=== PATIENT | female | born 1990 | race Hispanic/Latino ===

== ENCOUNTER 2017-12-07 19:20 | Emergency (ER) | payer SELFPAY ==
[2017-12-07 20:15] LABS: Urine Blood NEGATIVE (NEG); Urine Glucose NEGATIVE (NEG); Urine Protein NEGATIVE (NEG); Urine Specific Gravity 1.025 (1.005-1.030); Urine pH 6.5 (5.0-7.0)
[2017-12-07 20:15] LABS: Urine Specific Gravity 1.025 (1.005-1.030)
[2017-12-07] MEDS ORDERED: MEPERIDINE HCL 25 MG/0.5 ML ONE (20:20)
[2017-12-07] MEDS ORDERED: PROMETHAZINE 25 MG/ML VIAL ONE (20:20)
[2017-12-07] MEDS ORDERED: NA CHLORIDE 0.9% 1,000 ML ONE (20:23)
[2017-12-07 20:24] LABS: Absolute Lymphocytes (CBC) 2.5 K/uL (0.7-4.9); Absolute Monocytes 0.7 K/uL (0.1-1.3); Absolute Neutrophil 6.1 K/uL (1.8-8.0); Basophils % 0.4 % (0-1.3); Eosinophils % 0.8 % (0-4.4); Hematocrit 39.5 % (36.0-45.0); Lymphocytes % 26.6 % (15.3-44.8); MCH 27.8 pg (27.0-35.0); MCV 83.3 fL (80-100); MPV 8.6 fL (7.6-11.3); Monocytes % 7.6 % (3.3-12.3); RBC Red Blood Cell Count 4.74 M/uL (3.86-4.86)
[2017-12-07 20:40] LABS: Bicarbonate 24 mEq/L (21-31); Glucose Level 123 mg/dL (65-120); Lipase 22 U/L (22-51); Potassium 3.4 mEq/L (3.6-5.0); Sodium Level 136 mEq/L (135-145)
[2017-12-07 20:46] LABS: ALT/SGPT 17 IU/L (10-60); AST/SGOT 18 IU/L (10-42); Albumin 4.3 g/dL (3.2-5.5); Alkaline Phosphatase 60 IU/L (42-121); Amylase Level 70 U/L (28-100); BUN Blood Urea Nitrogen 23 mg/dL (6-20); Bilirubin Direct 0.1 mg/dL (0-0.2); Bilirubin Total 0.7 mg/dL (0.3-1.2); Protein, Total 7.2 g/dL (6.0-8.3)
[2017-12-07] MEDS ORDERED: KETOROLAC 30 MG/ML INJ ONE (20:54)
[2017-12-07 20:56] LABS: Urine Bacteria <20 /HPF (<20); Urine Culture Reflex Order NOT NEEDED; Urine Mucus 1+ /HPF (NONE SEEN); Urine RBC <5 /HPF (NONE SEEN)
--- NOTE | 2017-12-07 21:02 | RAD REPORT ---
EXAM DESCRIPTION: CT - Stone Protocol - 12/07/2017 8:41 pm CLINICAL HISTORY: Abdominal pain. Right flank pain COMPARISON: None. TECHNIQUE: Computed axial tomography of the abdomen pelvis was obtained without oral or IV contrast. Lack of IV and oral contrast limits evaluation of solid organs, bowel, and vessels. Coronal reformat gayle images were obtained and reviewed. All CT scans are performed using dose optimization technique as appropriate and may include automated exposure control or mA/KV adjustment according to patient size. FINDINGS: A renal calculus is not seen. Mild to moderate right hydronephrosis is present. The right ureter is dilated. A 1 millimeter calculus is present at the right ureteral vesicle junction. The liver, spleen, pancreas and adrenals appear grossly normal There is no evidence of diverticulitis. The appendix appears normal. A 2.7 centimeter right ovarian cyst is present without significant free-fluid An intrauterine device is in place. IMPRESSION: 1 millimeter calculus at the right ureterovesical junction resulting in mild to moderate right hydronephrosis 2.7 centimeter right ovarian cyst without significant free fluid
--- NOTE | 2017-12-07 21:42 | ER ---
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 aj Transition of care: patient was not received from another setting of care. Onset of symptoms was December 07, 2017. Initial Sepsis Screen: Does the patient meet any 2 criteria? No. Patient's initial sepsis screen is negative. Does the patient have a suspected source of infection? No. Patient's initial sepsis screen is negative. Care prior to arrival: None. 19:38 Method Of Arrival: Ambulatory aj 19:38 Acuity: SERA 3 aj Triage Assessment: 19:39 General: Appears uncomfortable, Behavior is calm, cooperative. Pain: Complains of pain aj in posterior aspect of right lateral abdomen and anterior aspect of right lateral abdomen Pain currently is 10 out of 10 on a pain scale. Neuro: Level of Consciousness is awake, alert, obeys commands, Oriented to person, place, time, situation. Respiratory: Airway is patent Respiratory effort is even, unlabored, Respiratory pattern is regular, symmetrical. : Reports pain in right flank(s). Derm: Skin is intact, is healthy with good turgor, Skin is pink, warm \T\ dry. normal. Musculoskeletal: Circulation, motion, and sensation intact. 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 - Social history:: Smoking status: Patient/guardian denies using tobacco. Screenin:45 Abuse screen: Denies threats or abuse. Denies injuries from another. Nutritional bp screening: No deficits noted. Tuberculosis screening: No symptoms or risk factors identified. Fall Risk None identified. Assessment: 19:45 General: Appears distressed, uncomfortable, obese, Behavior is cooperative, appropriate bp for age, anxious. Pain: Complains of pain in posterior aspect of right lateral abdomen and right upper quadrant. Neuro: Level of Consciousness is awake, alert, obeys commands, Oriented to person, place, time, situation, Appropriate for age. Cardiovascular: No deficits noted. Respiratory: Airway is patent Respiratory effort is even, unlabored, Respiratory pattern is regular, symmetrical. GI: Reports upper abdominal pain, nausea. : No signs and/or symptoms were reported regarding the genitourinary system. EENT: No deficits noted. Derm: No deficits noted. Musculoskeletal: Circulation, motion, and sensation intact. Range of motion: intact in all extremities. 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 bp 21:12 Reassessment: PER MD, PT HAS 1MM STONE. DISPO ON HOLD FOR IVF HYDRATION. bp 22:10 Reassessment: IVF COMPLETED, PT D/C HOME AMBULATORY, DX WITH HYDRONEPHROSIS AND bp URETERAL CALCULOUS OBSTRUCTION. Vital Signs: 19:39 BP 113 / 78; Pulse 67; Resp 19; Temp 98.6; Pulse Ox 99% on R/A; Weight 83.91 kg; Height aj 5 ft. 3 in. (160.02 cm); Pain 10/10; 20:24 BP 104 / 91; Pulse 75; Resp 18; Pulse Ox 99% on R/A; mt 21:30 BP 123 / 79; Pulse 74; Resp 16; Pulse Ox 99% on R/A; mt 19:39 Body Mass Index 32.77 (83.91 kg, 160.02 cm) ED Course: 19:29 Patient arrived in ED. es 19:30 None, None is Private Physician. es 19:38 Triage completed. aj 19:39 Arm band placed on left wrist. Patient placed in an exam room. aj 19:44 Farhat Laurent PA is PHCP. jr8 19:44 Jd Mccord MD is Attending Physician. jr8 19:45 Patient has correct armband on for positive identification. Placed in gown. Bed in low bp position. Call light in reach. Side rails up X2. 19:45 No provider procedures requiring assistance completed. bp 19:49 Jose G Marcelino, RN is Primary Nurse. bp 20:00 Inserted saline lock: 20 gauge in right antecubital area, using aseptic technique. bp Blood collected. 20:[address] via stretcher. nj 20:40 CT completed. Patient tolerated procedure well. Patient moved back from CT. nj 20:41 CT Stone Protocol In Process Unspecified. EDMS 21:42 Tamera Guadalupe MD is Referral Physician. jr8 22:09 IV discontinued, intact, bleeding controlled, No redness/swelling at site. Pressure bp dressing applied. Administered Medications: 20:20 Drug: Demerol 25 mg Route: IVP; Site: right antecubital; bp 20:57 Follow up: Response: No adverse reaction bp 20:20 Drug: Phenergan 12.5 mg Route: IVP; Site: right antecubital; bp 20:57 Follow up: Response: No adverse reaction bp 20:58 Drug: Ketorolac 30 mg Route: IVP; Site: right antecubital; bp 21:12 Follow up: Response: Pain is decreased bp 22:08 Drug: [place] (7.5 mg-325 mg) 1 tabs Route: PO; bp 22:08 Follow up: Response: Medication administered at discharge. bp Outcome: 21:42 Discharge ordered by . jr8 22:10 Discharged to home ambulatory. bp 22:10 Condition: stable 22:10 Discharge instructions given to patient, Instructed on discharge instructions, follow up and referral plans. medication usage, Demonstrated understanding of instructions, follow-up care, medications, Prescriptions given X 3. 22:11 Patient left the ED. bp Signatures: Dispatcher [employer] EDDesiree Avina, Jazlyn Mccoy RN, Josh, PA PA jrAddison Childress Moriah mt Pelt[place], Brian RN RN bp
--- NOTE | 2017-12-07 21:42 | EDPHYS ---
Physician Documentation [facility] Name: Lily Swann Age: 27 yrs Sex: Female : 1990 Arrival Date: 12/07/2017 Time: 19:29 Bed 19 Private MD: None, None ED Physician Jd Mccord HPI: 12/07 20:14 This 27 yrs old Female presents to ER via Ambulatory with complaints of jr8 abdominal/flank pain. 20:14 The patient presents with abdominal pain in the right upper quadrant. Onset: The jr8 symptoms/episode began/occurred acutely, today. The symptoms radiate to right back, the right flank. Associated signs and symptoms: Pertinent positives: nausea. The symptoms are described as stabbing. Modifying factors: The symptoms are alleviated by nothing, the symptoms are aggravated by nothing. Severity of pain: At its worst the pain was moderate in the emergency department the pain is unchanged. The patient has not experienced similar symptoms in the past. The patient has not recently seen a physician. 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 - Social history:: Smoking status: Patient/guardian denies using tobacco. ROS: 20:14 Eyes: Negative for injury, pain, redness, and discharge, ENT: Negative for injury, jr8 pain, and discharge, Neck: Negative for injury, pain, and swelling, Cardiovascular: Negative for chest pain, palpitations, and edema, Respiratory: Negative for shortness of breath, cough, wheezing, and pleuritic chest pain, Back: Positive for right sided flank pain MS/Extremity: Negative for injury and deformity, Skin: Negative for injury, rash, and discoloration, Neuro: Negative for headache, weakness, numbness, tingling, and seizure. 20:14 Abdomen/GI: Positive for abdominal pain, nausea, Negative for vomiting, diarrhea, abdominal distension, anorexia, dysphagia, hematemesis, black/tarry stool, rectal pain, rectal bleeding, bowel incontinence, flatulence. Exam: 20:14 Eyes: Pupils equal round and reactive to light, extra-ocular motions intact. Lids and jr8 lashes normal. Conjunctiva and sclera are non-icteric and not injected. Cornea within normal limits. Periorbital areas with no swelling, redness, or edema. ENT: Nares patent. No nasal discharge, no septal abnormalities noted. Tympanic membranes are normal and external auditory canals are clear. Oropharynx with no redness, swelling, or masses, exudates, or evidence of obstruction, uvula midline. Mucous membranes moist. Neck: Trachea midline, no thyromegaly or masses palpated, and no cervical lymphadenopathy. Supple, full range of motion without nuchal rigidity, or vertebral point tenderness. No Meningismus. Cardiovascular: Regular rate and rhythm with a normal S1 and S2. No gallops, murmurs, or rubs. Normal PMI, no JVD. No pulse deficits. Respiratory: Lungs have equal breath sounds bilaterally, clear to auscultation and percussion. No rales, rhonchi or wheezes noted. No increased work of breathing, no retractions or nasal flaring. Skin: Warm, dry with normal turgor. Normal color with no rashes, no lesions, and no evidence of cellulitis. MS/ Extremity: Pulses equal, no cyanosis. Neurovascular intact. Full, normal range of motion. Neuro: Awake and alert, GCS 15, oriented to person, place, time, and situation. Cranial nerves II-XII grossly intact. Motor strength 5/5 in all extremities. Sensory grossly intact. Cerebellar exam normal. Normal gait. 20:14 Abdomen/GI: Inspection: obese Bowel sounds: active, all quadrants, Palpation: soft, in all quadrants, mild abdominal tenderness, in the anterior aspect of right lateral abdomen and right upper quadrant, mass, is not appreciated, rebound tenderness, is not appreciated, voluntary guarding, is not appreciated, involuntary guarding, is not appreciated, no appreciated organomegaly, Indicators: McBurney's point is not tender, Bowman's sign is negative, Rovsing's sign is negative, Liver: no appreciated palpable abnormalities, tenderness, is not appreciated. 20:14 Back: pain, that is moderate, of the right flank, ROM is normal, normal spinal alignment noted, CVA tenderness, that is mild, is noted on the right, muscle spasm, is not present. Vital Signs: 19:39 BP 113 / 78; Pulse 67; Resp 19; Temp 98.6; Pulse Ox 99% on R/A; Weight 83.91 kg; Height aj 5 ft. 3 in. (160.02 cm); Pain 10/10; 20:24 BP 104 / 91; Pulse 75; Resp 18; Pulse Ox 99% on R/A; mt 21:30 BP 123 / 79; Pulse 74; Resp 16; Pulse Ox 99% on R/A; mt 19:39 Body Mass Index 32.77 (83.91 kg, 160.02 cm) aj MDM: 19:44 Patient medically screened. jr8 21:41 Data reviewed: vital signs, nurses notes, lab test result(s), radiologic studies, CT jr8 scan, and as a result, I will discharge patient. Data interpreted: Pulse oximetry: on room air is 99 %. Interpretation: normal. Counseling: I had a detailed discussion with the patient and/or guardian regarding: the historical points, exam findings, and any diagnostic results supporting the discharge/admit diagnosis, lab results, radiology results, the need for outpatient follow up, a urologist, to return to the emergency department if symptoms worsen or persist or if there are any questions or concerns that arise at home. Response to treatment: the patient's symptoms have markedly improved after treatment. 12/07 19:52 Order name: Amylase, Serum; Complete Time: 20:47 bp 12/07 19:52 Order name: Basic Metabolic Panel; Complete Time: 20:47 bp 12/07 19:52 Order name: CBC with Diff; Complete Time: 20:28 bp 12/07 19:52 Order name: Creatinine for Radiology; Complete Time: 20:43 bp 12/07 19:52 Order name: Hepatic Function; Complete Time: 20:47 bp 12/07 19:52 Order name: Lipase; Complete Time: 20:47 bp 12/07 19:52 Order name: Urine Microscopic Only; Complete Time: 21:02 bp 12/07 19:52 Order name: CT Stone Protocol; Complete Time: 21:05 bp 12/07 19:54 Order name: Urine Dipstick--Ancillary (enter results); Complete Time: 20:18 em1 12/07 19:55 Order name: Urine --Ancillary (enter results); Complete Time: 20:18 em1 12/07 19:44 Order name: Urine Test (obtain specimen); Complete Time: 19:49 [facility] 12/07 19:44 Order name: Urine Dipstick-Ancillary (obtain specimen); Complete Time: 19:49 [facility] 12/07 19:52 Order name: IV Saline Lock; Complete Time: 20:02 bp 12/07 19:52 Order name: Labs collected and sent; Complete Time: 20:02 bp Administered Medications: 20:20 Drug: Demerol 25 mg Route: IVP; Site: right antecubital; bp 20:57 Follow up: Response: No adverse reaction bp 20:20 Drug: Phenergan 12.5 mg Route: IVP; Site: right antecubital; bp 20:57 Follow up: Response: No adverse reaction bp 20:58 Drug: Ketorolac 30 mg Route: IVP; Site: right antecubital; bp 21:12 Follow up: Response: Pain is decreased bp 22:08 Drug: [place] (7.5 mg-325 mg) 1 tabs Route: PO; bp 22:08 Follow up: Response: Medication administered at discharge. bp Disposition: 12/08 07:57 Co-signature as Attending Physician, Jd Mccord MD I agree with the assessment and kaylen plan of care. Disposition: 12/07/17 21:42 Discharged to Home. Impression: Hydronephrosis with renal and ureteral calculous obstruction. - Condition is Stable. - Discharge Instructions: Kidney Stones, Hydronephrosis. - Prescriptions for Tylenol- Codeine #3 300-30 mg Oral Tablet - take 2 tablet by ORAL route every 6 hours As needed; 30 tablet. Zofran 4 mg Oral Tablet - take 1 tablet by ORAL route every 12 hours As needed; 20 tablet. Flomax 0.4 mg Oral Capsule, Sust. Release 24 hr - take 1 capsule by ORAL route once daily 1/2 hour following the same meal each day; 30 capsule. - Medication Reconciliation Form, Thank You Letter, Antibiotic Education, Prescription Opioid Use form. - Follow up: Tamera Guadalupe MD; When: 2 - 3 days; Reason: Recheck today's complaints, Continuance of care, Re-evaluation by your physician. - Problem is new. - Symptoms have improved. Signatures: Dispatcher [employer] EDDesiree Avina RN RN aj Anderson, Corey, MD MD cha Roszak, Josh, PA PA jr8 Jose G Marcelino, RN RN bp Corrections: (The following items were deleted from the chart) 12/07 21:20 20:48 Abdomen Limited+[id number] ordered. EDMS EDMS
[2017-12-07] MEDS ORDERED: HYDROCODONE/APAP 7.5/325 MG TAB ONE (21:59)
== END 2017-12-07 22:11 | disposition home or self-care (01) ==
LOC: ER 19:20
DX: N13.2 Hydronephrosis with renal and ureteral calculous obstruction (principal)
CPT/HCPCS: 36415; 74176; 76377; 80048; 80076; 81003; 81015; 81025; 82150; 83690; 85025; 96374; 96375; 99284; J2175; J2550; J7030

== ENCOUNTER 2018-06-08 16:37 | Emergency (ER) | payer OTHER, SELFPAY ==
[2018-06-08 18:10] LABS: Absolute Lymphocytes (CBC) 1.9 K/uL (0.7-4.9); Absolute Monocytes 0.5 K/uL (0.1-1.3); Absolute Neutrophil 7.4 K/uL (1.8-8.0); Basophils % 0.4 % (0-1.3); Eosinophils % 0.6 % (0-4.4); Hematocrit 39.3 % (36.0-45.0); Lymphocytes % 19.1 % (15.3-44.8); MCH 29.2 pg (27.0-35.0); MCV 85.9 fL (80-100); MPV 8.7 fL (7.6-11.3); Monocytes % 5.4 % (3.3-12.3); RBC Red Blood Cell Count 4.57 M/uL (3.86-4.86)
[2018-06-08 18:12] LABS: Protime INR 1.04
[2018-06-08 18:44] LABS: ALT/SGPT 23 U/L (12-78); AST/SGOT 16 U/L (15-37); Albumin 3.3 g/dL (3.4-5.0); Alkaline Phosphatase 67 U/L (45-117); BUN Blood Urea Nitrogen 8 mg/dL (7-18); Bicarbonate 21 mmol/L (21-32); Bilirubin Direct 0.1 mg/dL (0-0.2); Bilirubin Total 0.7 mg/dL (0.2-1.0); Glucose Level 82 mg/dL (74-106); NT PRO-BNP 24 pg/mL (<125); Potassium 3.7 mmol/L (3.5-5.1); Protein, Total 7.4 g/dL (6.4-8.2); Sodium Level 139 mmol/L (136-145); Troponin (Emerg Dept Use Only) < 0.02 ng/mL (0.0-0.045)
--- NOTE | 2018-06-08 19:03 | ER ---
Nurse's Notes [facility] Name: Lily Swann Age: 27 yrs Sex: Female : 1990 Arrival Date: 06/08/2018 Time: 16:39 Bed 13 Private MD: Diagnosis: Chest pain, unspecified Presentation: 06/08 17:00 Presenting complaint: Patient states: Left sided chest pain that radiates down her left aj1 arm since 0700. States that she has been having pain like this that is on and off for the past month and a half, but she has not been evaluated for this pain before now. Patient reports that she is 12 weeks . Reports SOB, palpitations, nausea. Transition of care: patient was not received from another setting of care. Onset of symptoms was June 08, 2018 at 07:00. Risk Assessment: Do you want to hurt yourself or someone else? Patient reports no desire to harm self or others. Initial Sepsis Screen: Does the patient meet any 2 criteria? HR > 90 bpm. No. Patient's initial sepsis screen is negative. Does the patient have a suspected source of infection? No. Patient's initial sepsis screen is negative. Care prior to arrival: None. 17:00 Method Of Arrival: Ambulatory aj1 17:00 Acuity: SERA 3 aj1 Triage Assessment: 17:04 General: Appears in no apparent distress. comfortable, Behavior is calm, cooperative, aj1 appropriate for age. Pain: Complains of pain in anterior aspect of left upper chest Pain radiates to left arm Pain currently is 7 out of 10 on a pain scale. Neuro: Level of Consciousness is awake, alert, obeys commands. Cardiovascular: Patient's skin is warm and dry. Cardiovascular: Reports chest pain, palpitations, shortness of breath. Respiratory: Airway is patent Respiratory effort is even, unlabored, Respiratory pattern is regular, symmetrical. 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 - Social history:: Smoking status: Patient/guardian denies using tobacco. - Ebola Screening: : Patient denies travel to an Ebola-affected area in the 21 days before illness onset. Screenin:03 Abuse screen: Denies threats or abuse. Denies injuries from another. Nutritional ph screening: No deficits noted. Tuberculosis screening: No symptoms or risk factors identified. Fall Risk None identified. Assessment: 17:30 General: Appears in no apparent distress. comfortable, obese, well groomed, Behavior is ph calm, cooperative, appropriate for age, Denies fever, feeling ill. Pain: Complains of pain in anterior aspect of left upper chest Pain radiates to left arm Pain began approx 6 weeks ago. Neuro: Level of Consciousness is awake, alert, obeys commands, Oriented to person, place, time, situation. Cardiovascular: Reports chest pain, palpitations, shortness of breath, Denies nausea, vomiting, Capillary refill < 3 seconds Patient's skin is warm and dry. Respiratory: Reports shortness of breath Airway is patent Respiratory effort is even, unlabored, Respiratory pattern is regular, symmetrical, Breath sounds are clear bilaterally. Derm: Skin is intact, is healthy with good turgor, Skin is pink, warm \T\ dry. Musculoskeletal: Circulation, motion, and sensation intact. Range of motion: intact in all extremities. 18:30 Reassessment: Patient appears in no apparent distress at this time. Patient and/or ph family updated on plan of care and expected duration. Pain level reassessed. Patient is alert, oriented x 3, equal unlabored respirations, skin warm/dry/pink. Pt resting quietly, awaiting lab and radiology results. Vital Signs: 17:04 BP 112 / 83; Pulse 95; Resp 20; Temp 97.5; Pulse Ox 100% on R/A; Weight 86.64 kg (R); aj1 Height 5 ft. 3 in. (160.02 cm) (R); Pain 7/10; 19:05 BP 104 / 79; Pulse 79; Resp 16; Pulse Ox 98% on R/A; jb4 17:04 Body Mass Index 33.83 (86.64 kg, 160.02 cm) aj1 ED Course: 16:39 Patient arrived in ED. as 17:01 Jinny Henry, XIAO is Primary Nurse. ph 17:02 Farhat Laurent PA is PHCP. jr8 17:02 Aureliano Wolfe MD is Attending Physician. jr8 17:04 Triage completed. aj1 17:04 Arm band placed on Patient placed in an exam room. aj1 17:13 EKG done, by technical solutions consultant. reviewed by Farhat JAIME. 3 18:10 Initial lab(s) drawn, by me, sent to lab. Inserted saline lock: 20 gauge in left em1 antecubital area, using aseptic technique. Blood collected. 18:21 XRAY Chest (1 view) In Process Unspecified. EDMS 19:03 Patient has correct armband on for positive identification. Placed in gown. Bed in low ph position. Call light in reach. Side rails up X 1. Pulse ox on. NIBP on. Warm blanket given. 19:03 No provider procedures requiring assistance completed. Patient maintains SpO2 ph saturation greater than 95% on room air. 19:05 IV discontinued, intact, bleeding controlled. jb4 Administered Medications: No medications were administered Outcome: 19:02 Discharge ordered by . bennie 19:05 Discharged to home ambulatory. jb4 19:05 Condition: stable 19:05 Discharge instructions given to patient, Instructed on discharge instructions, follow up and referral plans. Demonstrated understanding of instructions, follow-up care. 19:13 Patient left the ED. jb4 Signatures: Dispatcher [employer] EDMS Marcie Crocker, RN RN aj1 Imelda Haynes Eric [facility] Farhat Laurent PA PA jrJinny Raza, Shadi Bowen RN, ph, RN RN jb4 Maite Ladd 3
--- NOTE | 2018-06-08 19:03 | EDPHYS ---
Physician Documentation [facility] Name: Lily Swann Age: 27 yrs Sex: Female : 1990 Arrival Date: 06/08/2018 Time: 16:39 Bed 13 Private MD: ED Physician Aureliano Wolfe HPI: 06/08 18:07 This 27 yrs old Female presents to ER via Ambulatory with complaints of Chest jr8 Pain. 18:07 The patient or guardian reports chest pain that is located primarily in the anterior jr8 chest wall, left. The pain radiates to the left arm. Associated signs and symptoms: The patient has no apparent associated signs or symptoms. The chest pain is described as sharp. Duration: The patient or guardian reports multiple episodes, that are intermittent, that wax and wane. Modifying factors: The symptoms are alleviated by deep breath. the symptoms are aggravated by nothing. Severity of pain: At its worst the pain was moderate in the emergency department the pain has resolved. The patient has experienced similar episodes in the past, multiple times. The patient has not recently seen a physician. Stated that the pain started over a year ago. Chest pain on/off but started up again this AM. Has been intermittent throughout the day . 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 - Social history:: Smoking status: Patient/guardian denies using tobacco. - Ebola Screening: : Patient denies travel to an Ebola-affected area in the 21 days before illness onset. ROS: 18:07 Eyes: Negative for injury, pain, redness, and discharge, ENT: Negative for injury, jr8 pain, and discharge, Neck: Negative for injury, pain, and swelling, Respiratory: Negative for shortness of breath, cough, wheezing, and pleuritic chest pain, Abdomen/GI: Negative for abdominal pain, nausea, vomiting, diarrhea, and constipation, Back: Negative for injury and pain, MS/Extremity: Negative for injury and deformity, Skin: Negative for injury, rash, and discoloration, Neuro: Negative for headache, weakness, numbness, tingling, and seizure. 18:07 Cardiovascular: Positive for chest pain, Negative for edema, orthopnea, palpitations, paroxysmal nocturnal dyspnea. Exam: 18:07 Eyes: Pupils equal round and reactive to light, extra-ocular motions intact. Lids and jr8 lashes normal. Conjunctiva and sclera are non-icteric and not injected. Cornea within normal limits. Periorbital areas with no swelling, redness, or edema. ENT: Nares patent. No nasal discharge, no septal abnormalities noted. Tympanic membranes are normal and external auditory canals are clear. Oropharynx with no redness, swelling, or masses, exudates, or evidence of obstruction, uvula midline. Mucous membranes moist. Neck: Trachea midline, no thyromegaly or masses palpated, and no cervical lymphadenopathy. Supple, full range of motion without nuchal rigidity, or vertebral point tenderness. No Meningismus. Cardiovascular: Regular rate and rhythm with a normal S1 and S2. No gallops, murmurs, or rubs. Normal PMI, no JVD. No pulse deficits. Respiratory: Lungs have equal breath sounds bilaterally, clear to auscultation and percussion. No rales, rhonchi or wheezes noted. No increased work of breathing, no retractions or nasal flaring. Abdomen/GI: Soft, non-tender, with normal bowel sounds. No distension or tympany. No guarding or rebound. No evidence of tenderness throughout. Back: No spinal tenderness. No costovertebral tenderness. Full range of motion. Skin: Warm, dry with normal turgor. Normal color with no rashes, no lesions, and no evidence of cellulitis. MS/ Extremity: Pulses equal, no cyanosis. Neurovascular intact. Full, normal range of motion. Neuro: Awake and alert, GCS 15, oriented to person, place, time, and situation. Cranial nerves II-XII grossly intact. Motor strength 5/5 in all extremities. Sensory grossly intact. Cerebellar exam normal. Normal gait. 18:07 Chest/axilla: Inspection: normal, Palpation: tenderness, that is mild, that partially reproduces the patient's complaints. Vital Signs: 17:04 BP 112 / 83; Pulse 95; Resp 20; Temp 97.5; Pulse Ox 100% on R/A; Weight 86.64 kg (R); aj1 Height 5 ft. 3 in. (160.02 cm) (R); Pain 7/10; 19:05 BP 104 / 79; Pulse 79; Resp 16; Pulse Ox 98% on R/A; jb4 17:04 Body Mass Index 33.83 (86.64 kg, 160.02 cm) aj1 MDM: 17:04 Patient medically screened. [facility] 19:02 Data reviewed: vital signs, nurses notes, lab test result(s), EKG, radiologic studies, jr plain films, and as a result, I will discharge patient. Data interpreted: Pulse oximetry: on room air is 100 %. Interpretation: normal. Counseling: I had a detailed discussion with the patient and/or guardian regarding: the historical points, exam findings, and any diagnostic results supporting the discharge/admit diagnosis, lab results, radiology results, the need for outpatient follow up, a family practitioner, to return to the emergency department if symptoms worsen or persist or if there are any questions or concerns that arise at home. Response to treatment: the patient's symptoms have resolved after treatment. 06/08 17:44 Order name: Basic Metabolic Panel; Complete Time: 18:48 06/08 17:44 Order name: CBC with Diff; Complete Time: 18:16 [facility] 06/08 17:44 Order name: LFT's; Complete Time: 18:48 06/08 17:44 Order name: Magnesium; Complete Time: 18:48 06/08 17:44 Order name: NT PRO-BNP; Complete Time: 18:48 06/08 17:44 Order name: PT-INR; Complete Time: 18:16 06/08 17:44 Order name: Troponin (emerg Dept Use Only); Complete Time: 18:48 06/08 17:44 Order name: XRAY Chest (1 view) [facility] 06/08 17:44 Order name: EKG; Complete Time: 17:45 [facility] 06/08 17:44 Order name: Cardiac monitoring; Complete Time: 18:56 06/08 17:44 Order name: EKG - Nurse/Tech; Complete Time: 18:56 06/08 17:44 Order name: IV Saline Lock; Complete Time: 18:10 06/08 18:13 Order name: Urine Dipstick--Ancillary (enter results) 06/08 18:13 Order name: Urine --Ancillary (enter results) eb 06/08 17:44 Order name: Labs collected and sent; Complete Time: 18:10 jr8 06/08 17:44 Order name: O2 Per Protocol; Complete Time: 18:56 jr8 06/08 17:44 Order name: O2 Sat Monitoring; Complete Time: 18:56 jr8 Administered Medications: No medications were administered Disposition: 06/09 06:13 Co-signature as Attending Physician, Aureliano Wolfe MD. rn Disposition: 06/08/18 19:02 Discharged to Home. Impression: Chest pain, unspecified. - Condition is Stable. - Discharge Instructions: Nonspecific Chest Pain. - Medication Reconciliation Form, Thank You Letter, Antibiotic Education, Prescription Opioid Use form. - Follow up: Private Physician; When: 2 - 3 days; Reason: Recheck today's complaints, Continuance of care, Re-evaluation by your physician. - Problem is new. - Symptoms have improved. Signatures: Dispatcher [employer] EDMS Marcie Corcker RN RN aj1 Aureliano Wolfe MD MD rn Roszak, Josh, PA PA jr8 Shadi Garcia RN RN jb4 Corrections: (The following items were deleted from the chart) 06/08 19:13 19:02 06/08/2018 19:02 Discharged to Home. Impression: Chest pain, unspecified. jb4 Condition is Stable. Forms are Medication Reconciliation Form, Thank You Letter, Antibiotic Education, Prescription Opioid Use. Follow up: Private Physician; When: 2 - 3 days; Reason: Recheck today's complaints, Continuance of care, Re-evaluation by your physician. Problem is new. Symptoms have improved. jr8
--- NOTE | 2018-06-08 19:19 | RAD REPORT ---
EXAM DESCRIPTION: RAD - Chest Single View - 06/08/2018 6:20 pm CLINICAL HISTORY: Left-sided chest pain COMPARISON: None. TECHNIQUE: AP portable chest image was obtained 1813 hours . FINDINGS: Lungs are clear. Heart and vasculature are normal. No measurable pleural effusion and no p neumothorax. No acute bony abnormality seen. No acute aortic findings suspected. IMPRESSION: No acute cardiopulmonary process.
[2018-06-08 19:26] LABS: Urine Blood NEGATIVE (NEG); Urine Glucose NEGATIVE (NEG); Urine Protein NEGATIVE (NEG); Urine pH 5.5 (5.0-7.0)
--- NOTE | 2018-06-09 07:29 | EKG ---
Test Date: 2018-06-08 Test Time: 17:11:29 Clinical Safety Manager: CARY MEASUREMENT RESULTS: Intervals: Rate: 87 NC: 186 QRSD: 82 QT: 382 QTc: 459 [place]: P: 41 NC: 186 QRS: 0 T: 32 INTERPRETIVE STATEMENTS: Normal sinus rhythm Normal ECG No previous ECG available for comparison Electronically Signed On 06-09-18 07:27:41 CDT by Jesús Jaimes
== END 2018-06-08 19:13 | disposition home or self-care (01) ==
LOC: ER 16:37
DX: R07.9 Chest pain, unspecified (principal); E03.9 Hypothyroidism, unspecified
CPT/HCPCS: 36415; 71045; 80048; 80076; 81003; 81025; 83735; 83880; 84484; 85025; 85610; 93005; 99284

== ENCOUNTER 2018-11-30 21:35 | Emergency (ER) | payer OTHER ==
--- OUTSIDE RECORDS SUMMARY | 2018-11-30 21:37 | XMS REPORT ---
:1990 [facility] Address [address] [place] [address] Dr. Hoang [address] [place] [id number] Care Team Providers Name Role Phone Unavailable Unavailable Unavailable Problems This patient has no known problems. Allergies, Adverse Reactions, Alerts This patient has no known allergies or adverse reactions. Medications This patient has no known medications.
[2018-11-30] MEDS ORDERED: ONDANSETRON 4 MG (ODT) TAB ONE (22:24)
[2018-11-30] MEDS ORDERED: ACETAMINOPHEN 500 MG TAB ONE (22:24)
--- NOTE | 2018-11-30 23:29 | ER ---
Nurse's Notes [facility] Name: Lily Swann Age: 28 yrs Sex: Female : 1990 Arrival Date: 11/30/2018 Time: 21:39 Bed 17 Private MD: Diagnosis: Acute upper respiratory infection, unspecified Presentation: 11/30 21:56 Presenting complaint: Patient states: "I have a sore throat and coughing with chest jd3 pain and nausea with headache for 2 days now.". Transition of care: patient was not received from another setting of care. Onset of symptoms was November 30, 2018. Risk Assessment: Do you want to hurt yourself or someone else? Patient reports no desire to harm self or others. Initial Sepsis Screen: Does the patient meet any 2 criteria? No. Patient's initial sepsis screen is negative. Does the patient have a suspected source of infection? No. Patient's initial sepsis screen is negative. Care prior to arrival: None. 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 - Social history:: Smoking status: Patient/guardian denies using tobacco. - Ebola Screening: : Patient negative for fever greater than or equal to 101.5 degrees Fahrenheit, and additional compatible Ebola Virus Disease symptoms. Screenin:06 Abuse screen: Denies threats or abuse. Nutritional screening: No deficits noted. jd3 Tuberculosis screening: No symptoms or risk factors identified. Fall Risk Ambulatory Aid- None/Bed Rest/Nurse Assist (0 pts). Gait- Normal/Bed Rest/Wheelchair (0 pts) Mental Status- Oriented to own ability (0 pts). Total Lopez Fall Scale indicates No Risk (0-24 pts). Assessment: 22:02 General: Appears in no apparent distress. uncomfortable, Behavior is calm, cooperative, jd3 appropriate for age. Pain: Complains of pain in chest Pain does not radiate. Quality of pain is described as aching, Pain began 2-3 days ago. Neuro: Level of Consciousness is awake, alert, obeys commands, Oriented to person, place, time, situation, Appropriate for age. Cardiovascular: Heart tones present Capillary refill < 3 seconds Patient's skin is warm and dry. Respiratory: Reports cough that is productive, Airway is patent Respiratory effort is even, unlabored, Respiratory pattern is regular, symmetrical, Breath sounds are clear bilaterally. GI: Abdomen is round Reports nausea, vomiting. : No signs and/or symptoms were reported regarding the genitourinary system. EENT: No signs and/or symptoms were reported regarding the EENT system. Nares with drainage noted. Derm: Skin is intact, Skin is dry, Skin is normal, Skin temperature is warm. Musculoskeletal: Circulation, motion, and sensation intact. Range of motion: intact in all extremities. 22:46 Reassessment: Patient appears in no apparent distress at this time. Patient and/or jd3 family updated on plan of care and expected duration. Pain level reassessed. Patient is alert, oriented x 3, equal unlabored respirations, skin warm/dry/pink. Patient states feeling better. 23:40 Reassessment: Patient appears in no apparent distress at this time. Patient and/or jd3 family updated on plan of care and expected duration. Pain level reassessed. Patient is alert, oriented x 3, equal unlabored respirations, skin warm/dry/pink. reported understanding of discharge instructions. Patient states feeling better. Vital Signs: 21:59 BP 108 / 81; Pulse 128; Resp 20 S; Temp 98.9(O); Pulse Ox 99% on R/A; Weight 86.18 kg jd3 (R); Height 5 ft. 3 in. (160.02 cm) (R); Pain 10/10; 22:45 BP 114 / 71; Pulse 117; Resp 18 S; Pulse Ox 100% on R/A; jd3 21:59 Body Mass Index 33.66 (86.18 kg, 160.02 cm) j Vitals: 22:19 Heart Tones 152. [facility] ED Course: 21:39 Patient arrived in ED. am2 21:55 Radu Ferraro RN is Primary Nurse. jd3 21:55 Jd Villafuerte PA is PHCP. cp 21:56 Braydon Stafford MD is Attending Physician. cp 21:58 Triage completed. jd3 22:02 Arm band placed on. jd3 22:06 Patient has correct armband on for positive identification. Bed in low position. Call jd3 light in reach. Side rails up X 1. equipment monitor phototypesetting on. Pulse ox on. 22:06 Patient maintains SpO2 saturation greater than 95% on room air. jd3 23:40 No provider procedures requiring assistance completed. Patient did not have IV access jd3 during this emergency room visit. Administered Medications: 22:19 Drug: Tylenol 1000 mg Route: PO; jd3 23:15 Follow up: Response: No adverse reaction jd3 22:19 Drug: Zofran 4 mg Route: PO; jd3 23:15 Follow up: Response: No adverse reaction jd3 Outcome: 23:28 Discharge ordered by MD. cp 23:40 Discharged to home ambulatory. jd3 23:40 Condition: stable 23:40 Discharge instructions given to patient, Instructed on discharge instructions, follow up and referral plans. Demonstrated understanding of instructions, follow-up care. 23:42 Patient left the ED. jd3 Signatures: Jd Villafuerte PA PA cp Moreno, Amanda am2 Radu Ferraro RN RN jd3
--- NOTE | 2018-11-30 23:29 | EDPHYS ---
Physician Documentation [facility] Name: Lily Swann Age: 28 yrs Sex: Female : 1990 Arrival Date: 11/30/2018 Time: 21:39 Bed 17 Private MD: ED Physician Braydon Stafford HPI: 11/30 22:10 This 28 yrs old Female presents to ER via Ambulatory with complaints of Cough, cp Chest Pain, Headache, Nausea, bodyache. 22:10 The patient or guardian reports cough, that is intermittent, with no sputum. Onset: The cp symptoms/episode began/occurred 2 day(s) ago. Associated signs and symptoms: Pertinent positives: chest pain, with cough, nausea, sore throat, headache, Pertinent negatives: diarrhea, fever, vomiting. 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 - Social history:: Smoking status: Patient/guardian denies using tobacco. - Ebola Screening: : Patient negative for fever greater than or equal to 101.5 degrees Fahrenheit, and additional compatible Ebola Virus Disease symptoms. ROS: 22:20 Constitutional: Negative for body aches, fever, poor PO intake. cp 22:20 Eyes: Negative for injury, pain, redness, and discharge. cp 22:20 ENT: Positive for sinus congestion, sore throat, Negative for drainage from ear(s), ear pain, difficulty swallowing, difficulty handling secretions. 22:20 Cardiovascular: Positive for chest pain, with cough, Negative for edema. 22:20 Respiratory: Positive for cough, with no reported sputum, Negative for shortness of breath, wheezing. 22:20 Abdomen/GI: Positive for nausea, Negative for abdominal pain, vomiting, diarrhea, constipation. 22:20 : Negative for urinary symptoms, vaginal bleeding, leakage of fluids. 22:20 Skin: Negative for rash. 22:20 Neuro: Positive for headache, Negative for altered mental status, weakness. 22:20 All other systems are negative. Exam: 22:25 Constitutional: The patient appears in no acute distress, alert, awake, non-toxic, well cp developed, well nourished. 22:25 Head/Face: Normocephalic, atraumatic. cp 22:25 Eyes: Periorbital structures: appear normal, Conjunctiva: normal, no exudate, no injection, Sclera: no appreciated abnormality, Lids and lashes: appear normal, bilaterally. 22:25 ENT: External ear(s): are unremarkable, Ear canal(s): are normal, clear, TM's: bulging, is not appreciated, bilaterally, dullness, bilaterally, erythema, is not appreciated, bilaterally, Nose: is normal, Mouth: Lips: moist, Oral mucosa: moist, Posterior pharynx: Airway: no evidence of obstruction, patent, Tonsils: with erythema, swelling, is not appreciated, erythema, that is mild, exudate, is not appreciated. 22:25 Neck: ROM/movement: is normal, is supple, no range of motions limitations, no meningismus, no nuchal rigidity, Lymph nodes: no appreciated lymphadenopathy. 22:25 Chest/axilla: Inspection: normal. 22:25 Cardiovascular: Rate: tachycardic, Rhythm: regular. 22:25 Respiratory: the patient does not display signs of respiratory distress, Respirations: normal, no use of accessory muscles, no retractions, no splinting, no tachypnea, labored breathing, is not present, Breath sounds: bronchial sounds, are not appreciated, decreased breath sounds, are not appreciated, + upper airway congestion. wheezing: is not appreciated. 22:25 Abdomen/GI: Inspection: gravid appearance, is noted, Palpation: abdomen is soft and non-tender, in all quadrants. 22:25 Back: pain, is absent, ROM is normal. 22:25 Skin: cellulitis, is not appreciated, no rash present. 22:25 Neuro: Orientation: to person, place \T\ time. Mentation: is normal, Cerebellar function: is grossly normal, Motor: moves all fours, strength is normal, Sensation: no obvious gross deficits. Vital Signs: 21:59 BP 108 / 81; Pulse 128; Resp 20 S; Temp 98.9(O); Pulse Ox 99% on R/A; Weight 86.18 kg jd3 (R); Height 5 ft. 3 in. (160.02 cm) (R); Pain 10/10; 22:45 BP 114 / 71; Pulse 117; Resp 18 S; Pulse Ox 100% on R/A; jd3 21:59 Body Mass Index 33.66 (86.18 kg, 160.02 cm) jd3 MDM: 21:56 Patient medically screened. cp 23:27 Data reviewed: vital signs, nurses notes, lab test result(s), and as a result, I will cp discharge patient. 11/30 22:08 Order name: Influenza Screen (a \T\ B); Complete Time: 22:59 cp 11/30 22:59 Interpretation: Reviewed. 11/30 22:08 Order name: Strep; Complete Time: 22:59 cp 11/30 22:59 Interpretation: Reviewed. 11/30 22:08 Order name: FHT's; Complete Time: 22:19 cp 11/30 22:39 Order name: Throat Culture EDMD 11/30 22:36 Order name: PO challenge; Complete Time: 22:54 cp Administered Medications: 22:19 Drug: Tylenol 1000 mg Route: PO; jd3 23:15 Follow up: Response: No adverse reaction jd3 22:19 Drug: Zofran 4 mg Route: PO; jd3 23:15 Follow up: Response: No adverse reaction jd3 Disposition: 12/01 06:58 Co-signature as Attending Physician, Braydon Stafford MD Available for consultation at ps1 all times. . Disposition: 11/30/18 23:28 Discharged to Home. Impression: Acute upper respiratory infection, unspecified. - Condition is Stable. - Discharge Instructions: Upper Respiratory Infection, Adult, Cool Mist Vaporizer. - Medication Reconciliation Form, Thank You Letter, Antibiotic Education, Prescription Opioid Use form. - Follow up: Private Physician; When: 2 - 3 days; Reason: Recheck today's complaints. - Problem is new. - Symptoms have improved. Signatures: Dispatcher [employer] EDMD Jd Villafuerte PA PA cp Davies, Jonathon, RN RN jd3 Singer, Phillip, MD MD ps1 Corrections: (The following items were deleted from the chart) 11/30 23:42 23:28 11/30/2018 23:28 Discharged to Home. Impression: Acute upper respiratory jd3 infection, unspecified. Condition is Stable. Forms are Medication Reconciliation Form, Thank You Letter, Antibiotic Education, Prescription Opioid Use. Follow up: Private Physician; When: 2 - 3 days; Reason: Recheck today's complaints. Problem is new. Symptoms have improved. cp
== END 2018-11-30 23:42 | disposition home or self-care (01) ==
LOC: ER 21:35
DX: J06.9 Acute upper respiratory infection, unspecified (principal); Z3A.00 Weeks of gestation of pregnancy not specified
CPT/HCPCS: 87070; 87081; 87804; 99284

== ENCOUNTER 2018-12-20 14:52 | Inpatient (IN) | payer OTHER ==
[2018-12-20] MEDS ORDERED: Ringers Lactate 1,000 ML IV PRN (14:54)
[2018-12-20] MEDS ORDERED: METHYLERGONOVINE 0.2MG/ML AMP IM PRN ×2 (14:54→23:06)
--- OUTSIDE RECORDS SUMMARY | 2018-12-20 14:55 | XMS REPORT ---
:1990 [facility] Address [address] [place] [address] Dr. Hoang [address] [place] [address] Care Team Providers Name Role Phone Unavailable Unavailable Unavailable Problems This patient has no known problems. Allergies, Adverse Reactions, Alerts This patient has no known allergies or adverse reactions. Medications This patient has no known medications.
[2018-12-20] MEDS ORDERED: Ringers Lactate 1,000 ML IV SCH (15:00)
[2018-12-20] MEDS ORDERED: LIDOCAINE 1% MPF 30 ML VIAL SQ ONE (15:32)
[2018-12-20] MEDS ORDERED: BUTORPHANOL 1 MG/ML INJ IV ONE ×2 (15:43→16:00)
[2018-12-20 15:44] LABS: Absolute Lymphocytes (CBC) 2.5 K/uL (0.7-4.9); Absolute Neutrophil 8.1 K/uL (1.8-8.0); Basophils % 0.2 % (0-1.3); Eosinophils % 0.7 % (0-4.4); Hematocrit 35.2 % (36.0-45.0); Lymphocytes % 21.7 % (15.3-44.8); MPV 8.7 fL (7.6-11.3); Monocytes % 8.6 % (3.3-12.3); RBC Red Blood Cell Count 4.52 M/uL (3.86-4.86)
[2018-12-20] MEDS ORDERED: PROMETHAZINE 25 MG/ML VIAL IV ONE (15:44)
[2018-12-20] MEDS ORDERED: BUTORPHANOL 1 MG/ML INJ ONE (15:59)
[2018-12-20] MEDS ORDERED: PROMETHAZINE 25 MG/ML VIAL ONE (15:59)
[2018-12-20] MEDS ORDERED: OXYTOCIN/LR 20 UNIT/1,000 ML BAG IV SCH ×2 (16:00→23:45)
[2018-12-20 16:02] VITALS: BMI 33.6
[2018-12-20] MEDS ORDERED: CARBOPROST TROME 250 MCG/ML IM ONE (16:09)
[2018-12-20] MEDS ORDERED: ROPIVACAINE HCL 2 MG/ML 100ML IV ONE (18:00)
[2018-12-20] MEDS ORDERED: ROPIVACAINE HCL 100 ML IV ONE (18:00)
[2018-12-20] MEDS ORDERED: FENTANYL CITR 100 MCG/2 ML IV ONE (18:00)
[2018-12-20] MEDS ORDERED: ROPIVACAINE HCL 20 ML ONE (18:22)
[2018-12-20] MEDS ORDERED: NA CIT/CITRIC AC 30 ML ORAL UDC PO ONE (21:23)
--- NOTE | 2018-12-20 21:27 | P.PN ---
Date of Service: 12/20/18 CX 7+ cm, edematious, I believe obstructed labor is present with only change from 5+ cm over 6 hour period of time and actual decrease from 8+ earlier, with no descent from minus 1-minus2 station. Will proceed with , I feel continued observation may injure or rupture uterus. Explained to patient and family
[2018-12-20] MEDS ORDERED: FAMOTIDINE 20 MG/2 ML VIAL IV ONE (21:39)
[2018-12-20] MEDS ORDERED: NA CIT/CITRIC AC 30 ML ORAL UDC ONE (21:39)
[2018-12-20] MEDS ORDERED: METOCLOPRAMIDE 10 MG/2mL INJ ONE (21:39)
[2018-12-20] MEDS ORDERED: CEFAZOLIN/SWI 2gm 2 GM/20 ML SYR ONE (21:40)
--- NOTE | 2018-12-20 21:49 | PREOPHP ---
Date of Admission: 12/20/2018 History Of Present Illness: Ms. James is a 28-year-old female, who refuses to answer any q uestions and refuses to cooperate with this examination. She is a 3, para 2-0-0-2, apparentl y being followed through [facility], was seen today, said to be 2 cm, contractions started about 4 t o 5 hours ago. She had rupture of membranes by her 's history, and presents to Labor and [facility] where she is noted to be 5 cm dilated. She is admitted for delivery. Past Medical History: Includes 2 prior vaginal deliveries without complications in 2011 and 2016. S he has a prior appendectomy. She has no other hospitalizations, accidents, illnesses, or injuries. Medications: She is on no medications other than vitamins. Allergies: SHE HAS NO KNOWN ALLERGIES. Social History: She does not smoke. Family History: Noncontributory. Review of Systems: and mother report because again the patient refuses to respond and just hyperventilates with her contractions. They report no recent cough, cold, fever, or chills. No recent nausea or vomiting . She denies any breast lumps or breast knots. They deny any bladder symptoms or other complaints. Physical Examination: General: Reveals a female, who refuses to comply with request on examination. Neck: Supple without obvious adenopathy or thyromegaly. Lungs: Clear. Breasts: Not examined. Abdomen: Estimated weight, 6+ pounds. Cervix noted to be 7 cm. Vertex presentation. Extremities: No cyanosis, clubbing, or edema. Impression: A 39+ week by history, labor. Plan: We will continue to request copies of records, which we have not been able to obtain as yet de spite trying for the last 2 hours. We have been able to ascertain she is beta strep negative. We wi ll plan on vaginal delivery. She has been medicated with 1 mg of Stadol, 12.5 mg IV of Phenergan x1. ALPHONSEG/ALYSHAL Voice ID: [id number]
[2018-12-20] MEDS ORDERED: ONDANSETRON 4 MG/2 ML VIAL ONE (21:52)
[2018-12-20] MEDS ORDERED: Phenylephrine HCl 10 MG/ML 1 ML VIAL ONE (21:52)
[2018-12-20] MEDS ORDERED: OXYTOCIN 10 UNIT/ML ML IV ONE (21:52)
[2018-12-20] MEDS ORDERED: NS 0.9% VIAL 10 ML ONE (21:52)
[2018-12-20] MEDS ORDERED: MORPHINE SULFATE/PF 1 MG/ML (10 ML AMP) ONE (21:52)
[2018-12-20] MEDS ORDERED: LIDOCAINE 2% W/EPI 1:200,000 MPF 20 ML VIAL IM ONE (21:55)
[2018-12-20] MEDS ORDERED: CEFAZOLIN 2 GM in NA CHLORIDE 0.9% 100 ML IVPB SCH (22:00)
[2018-12-20] MEDS ORDERED: METOCLOPRAMIDE 10 MG/2mL INJ IV ONE (22:00)
[2018-12-20] MEDS ORDERED: Ringers Lactate 1,000 ML IV ONE (23:01)
[2018-12-20] MEDS ORDERED: Oxycodone HCl/Acetaminophen 1 TAB TAB PO PRN (23:06)
[2018-12-20] MEDS ORDERED: KETOROLAC 30 MG/ML INJ IV PRN (23:06)
[2018-12-20] MEDS ORDERED: CARBOPROST TROME 250 MCG/ML IM PRN (23:06)
[2018-12-20] MEDS ORDERED: ONDANSETRON 4 MG (ODT) TAB PO PRN (23:06)
[2018-12-20] MEDS ORDERED: METHYLERGONOVINE 0.2 MG TAB PO PRN (23:06)
--- NOTE | 2018-12-20 23:12 | P.BOP ---
Preoperative diagnosis: 39+ week , FTP Postoperative diagnosis: same, viable female Primary procedure: Fireworks Inspector: Jaylon Jo Estimated blood loss: 1000ml Specimen: placenta Anesthesia: Spinal Complications: None Transferred to: Other ([id number]) Condition: Good
[2018-12-21 05:52] LABS: Absolute Lymphocytes (CBC) 1.4 K/uL (0.7-4.9); Absolute Monocytes 1.3 K/uL (0.1-1.3); Absolute Neutrophil 14.2 K/uL (1.8-8.0); Basophils % 0.3 % (0-1.3); Hematocrit 29.9 % (36.0-45.0); Lymphocytes % 8.4 % (15.3-44.8); MPV 8.3 fL (7.6-11.3); Monocytes % 7.8 % (3.3-12.3); RBC Red Blood Cell Count 3.86 M/uL (3.86-4.86)
[2018-12-21] MEDS ORDERED: FAMOTIDINE 20 MG/2 ML VIAL IV SCH (09:00)
[2018-12-21] MEDS: Oxycodone HCl/Acetaminophen 1 TAB TAB PO PRN ×2 (14:43→17:08)
[2018-12-21 20:43] LABS: RPR (Rapid Plasma Reagin) NON-REACT (NON-REACT)
[2018-12-21 20:48] LABS: RPR Titer ND
--- NOTE | 2018-12-22 06:48 | P.PN ---
Date of Service: 12/22/18 S-No complaints O-Afeb, vs stable, abdomen soft, bandage dry A-Satisfactory, ambulate, may dismiss this pm or tomorrow am.
[2018-12-22] MEDS: Oxycodone HCl/Acetaminophen 1 TAB TAB PO PRN (08:35)
[2018-12-22] MEDS: IBUPROFEN 200 MG TAB PO PRN ×2 (10:40→16:57)
[2018-12-22 17:03] VITALS: BP 104/73; TEMP 97.3
[2018-12-24 03:23] LABS: HBsAG Nonreactive (Nonreactive)
--- NOTE | 2019-01-24 14:39 | OP ---
Surgeon: Juliano Carroll MD Anesthesiologist: Dr. Mcginnis. Preoperative Diagnoses: A 39-week , failure to progress in labor. Procedure: Primary section. Postoperative Diagnoses: A 39-week , failure to progress in labor. Delivery of viable homar hernández . Description Of Procedure: After a satisfactory level of spinal block anesthesia was obtained, the pa tient was prepped and draped in the usual fashion for abdominal surgery. She received 2 g of Ancef f or antibiotic prophylaxis. A Pfannenstiel skin incision was made, carried down to the fascia, fascia incised with a combination of sharp and blunt dissection. This was from the underlying re ctus muscles. These were divided in the midline. The peritoneum identified and incised. Vesicouter ine peritoneum incised. A low-transverse uterine incision was made. An 8-pound female , 8 and 9, was delivered in a vertex presentation. The cord was clamped, cut, and the infant placed i n a warmer. Cord blood was obtained. Placenta was manually removed. The uterus was then exterioriz ed. The uterus was closed in 2 layers of running nonlocking 0 Vicryl suture. Second layer was used to imbricate the first. The vesicouterine peritoneum was reapproximated with a running suture of 3-0 Vicryl. The uterus was returned to peritoneal cavity, which was cleaned of amniotic fluid, debris, and blood clot. The rectus muscles were approximated in midline with simple sutures of 0 Vicryl. Th e fascia was closed with running suture of #1 Vicryl from either margin to the middle. The subcutane ous tissue was approximated with simple sutures of 3-0 Vicryl, subdermal suture of 3-0 Vicryl, and 4- 0 was subcuticular suture of Monocryl. The patient was taken to recovery room in satisfactory condit ion with Bassett catheter in place. Flat Grinder Operator Surgeon: Dr. Jo. Estimated Total Blood Loss: Less than 1000 cc. MPG/MODL Voice ID: [id number] Report ID: [id number]
== END 2018-12-22 18:30 | disposition home or self-care (01) | DRG 788 ==
LOC: L&D 14:52 → 2ND-WC 15:02
PROVIDERS: ADMIT Specialist; ATTEND Specialist
PROC: 10D00Z1 Extraction of Products of Conception, Low, Open Approach (ICD-10-PCS; principal; 2018-12-20 21:17)
DX: O62.0 Primary inadequate contractions (principal); O32.4XX0 Maternal care for high head at term, not applicable or unspecified; Z3A.39 39 weeks gestation of pregnancy; Z37.0 Single live birth
CPT/HCPCS: 36415; 85025; 86592; 86900; 86901; 87340; 88307; G0433; J0595; J0690; J2210; J2370; J2405; J2550; J2590; J2765; J2795; J3010

== ENCOUNTER 2019-02-28 08:39 | Emergency (ER) | payer OTHER ==
--- OUTSIDE RECORDS SUMMARY | 2019-02-28 08:43 | XMS REPORT ---
:1990 [facility] Address [address] [place] [address] Dr. Hoang [address] [place] [id number] Care Team Providers Name Role Phone Unavailable Unavailable Unavailable Problems This patient has no known problems. Allergies, Adverse Reactions, Alerts This patient has no known allergies or adverse reactions. Medications This patient has no known medications.
[2019-02-28] MEDS ORDERED: METOCLOPRAMIDE 10 MG/2mL INJ ONE (10:38)
[2019-02-28] MEDS ORDERED: NA CHLORIDE 0.9% 1,000 ML ONE (10:38)
[2019-02-28 10:43] LABS: Absolute Lymphocytes (CBC) 0.7 K/uL (0.7-4.9); Basophils % 0.1 % (0-1.3); Eosinophils % 0.4 % (0-4.4); Hematocrit 41.7 % (36.0-45.0); Lymphocytes % 5.7 % (15.3-44.8); MPV 8.4 fL (7.6-11.3); Monocytes % 4.4 % (3.3-12.3); RBC Red Blood Cell Count 5.39 M/uL (3.86-4.86)
[2019-02-28 11:01] LABS: ALT/SGPT 19 U/L (12-78); AST/SGOT 12 U/L (15-37); Alkaline Phosphatase 130 U/L (45-117); BUN Blood Urea Nitrogen 18 mg/dL (7-18); Bicarbonate 27 mmol/L (21-32); Bilirubin Direct 0.2 mg/dL (0-0.2); Bilirubin Total 1.4 mg/dL (0.2-1.0); Glucose Level 90 mg/dL (74-106); Lipase 128 U/L (73-393); Potassium 3.8 mmol/L (3.5-5.1); Protein, Total 8.2 g/dL (6.4-8.2); Sodium Level 143 mmol/L (136-145)
[2019-02-28 11:22] LABS: Blood Morphology Comment NOT SEEN (NOT SEEN); Platelet Estimate ADEQ; Urine White Blood Cell Casts OK
--- NOTE | 2019-02-28 11:34 | RAD REPORT ---
EXAM DESCRIPTION: US - Abdomen Exam Limited - 02/28/2019 11:24 am CLINICAL HISTORY: ABD PAIN COMPARISON: No comparisons FINDINGS: The gallbladder demonstrates no gallstones. No pericholecystic fluid or gallbladder wall t hickening. The common bile duct is normal measuring 1 mm. The liver demonstrates no findings of intrahepatic biliary dilatation. IMPRESSION: Unremarkable examination.
[2019-02-28] MEDS ORDERED: ACETAMINOPHEN 325 MG TABLET ONE (11:44)
--- NOTE | 2019-02-28 12:25 | RAD REPORT ---
EXAM DESCRIPTION: CTAbdomen Pelvis W Contrast - 02/28/2019 12:15 pm CLINICAL HISTORY: Abdominal pain. abdominal pain COMPARISON: No comparisons TECHNIQUE: Biphasic CT imaging of the abdomen and pelvis was performed with 100 ml non-ionic IV cont rast. All CT scans are performed using dose optimization technique as appropriate and may include automated exposure control or mA/KV adjustment according to patient size. FINDINGS: The lung bases are clear. The liver, spleen, pancreas, adrenal glands and kidneys are within normal limits. No bowel obstruction, free air, free fluid or abscess. The appendix is not identified as a discrete structure, however, no secondary findings of appendicitis are identified. No evidence of significan t lymphadenopathy. No suspicious bony findings. IMPRESSION: No acute intra-abdominal or pelvic finding.
--- NOTE | 2019-02-28 12:59 | EDPHYS ---
Physician Documentation [facility] Name: Lily Swann Age: 28 yrs Sex: Female : 1990 Arrival Date: 02/28/2019 Time: 08:41 Bed 16 Private MD: ED Physician Aureliano Wolfe HPI: 02/28 10:10 This 28 yrs old Female presents to ER via Ambulatory with complaints of jmm Abdominal Pain, Vomiting. 10:10 The patient presents with abdominal pain in the epigastric area. Onset: The jmm symptoms/episode began/occurred gradually, 1 day(s) ago. The symptoms do not radiate. Associated signs and symptoms: Pertinent positives: nausea and vomiting, diarrhea. This is a 28 year old female with a history of hypothyroidism that presents to the ED with complaints of epigastric abdominal pain, vomiting, and diarrhea. Symptoms began last night. Patient states recently recovering from a similar illness but has developed epigastric pain today. . 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 - Social history:: Smoking status: Patient/guardian denies using tobacco, Patient/guardian denies using alcohol, street drugs. - Ebola Screening: : Patient negative for fever greater than or equal to 101.5 degrees Fahrenheit, and additional compatible Ebola Virus Disease symptoms Patient denies exposure to infectious person Patient denies travel to an Ebola-affected area in the 21 days before illness onset No symptoms or risks identified at this time. ROS: 10:10 Constitutional: Negative for fever, chills, and weight loss, Cardiovascular: Negative jmm for chest pain, palpitations, and edema, Respiratory: Negative for shortness of breath, cough, wheezing, and pleuritic chest pain. 10:10 Abdomen/GI: Positive for abdominal pain, nausea and vomiting, diarrhea. 10:10 All other systems are negative. Exam: 10:10 Constitutional: This is a well developed, well nourished patient who is awake, alert, jmm and in no acute distress. Head/Face: atraumatic. Eyes: EOMI, no conjunctival erythema appreciated ENT: Moist Mucus Membranes Neck: Trachea midline, Supple Chest/axilla: Normal chest wall appearance and motion. Cardiovascular: Regular rate and rhythm. No edema appreciated Respiratory: Normal respirations, no respiratory distress appreciated 10:10 Back: Normal ROM Skin: General appearance color normal MS/ Extremity: Moves all extremities, no obvious deformities appreciated, no edema noted to the lower extremities Neuro: Awake and alert, normal gait Psych: Behavior is normal, Mood is normal, Patient is cooperative and pleasant 10:10 Abdomen/GI: Inspection: abdomen appears normal, Bowel sounds: normal, Palpation: soft, mild abdominal tenderness, in the epigastric area. Vital Signs: 09:02 BP 116 / 62; Pulse 98; Resp 20; Temp 98.1; Pulse Ox 99% on R/A; Weight 74.84 kg; Height ch 5 ft. 3 in. (160.02 cm); Pain 8/10; 10:50 BP 120 / 79; Pulse 74; Resp 18; Pulse Ox 100% on R/A; aj 12:19 BP 112 / 63; Pulse 67; Resp 17; Pulse Ox 99% on R/A; aj 13:23 BP 113 / 64; Pulse 84; Resp 16; Pulse Ox 99% on R/A; aj 09:02 Body Mass Index 29.23 (74.84 kg, 160.02 cm) [facility]: 10:10 Patient medically screened. [facility] 12:51 Data reviewed: vital signs, nurses notes. Counseling: I had a detailed discussion with bharat the patient and/or guardian regarding: the historical points, exam findings, and any diagnostic results supporting the discharge/admit diagnosis, lab results, radiology results, the need for outpatient follow up, to return to the emergency department if symptoms worsen or persist or if there are any questions or concerns that arise at home. ED course: Patient is alert and non toxic in appearance in the ED. Patient tolerates PO. Patient is advised to follow up with pcp and otherwise given strict return precautions. Patient understood and agrees with the plan of care. . 02/28 10:11 Order name: Basic Metabolic Panel; Complete Time: 11:01 [facility] 02/28 10:11 Order name: CBC with Diff; Complete Time: 11:23 [facility] 02/28 10:11 Order name: Creatinine for Radiology; Complete Time: : [facility] 02/28 10:11 Order name: Hepatic Function; Complete Time: 11:01 [facility] 02/28 10:11 Order name: Lipase; Complete Time: 11:01 [facility] 02/28 10:14 Order name: Urine Dipstick--Ancillary (enter results); Complete Time: 13:25 02/28 10:14 Order name: Urine --Ancillary (enter results); Complete Time: 13:25 02/28 10:50 Order name: CBC Smear Scan; Complete Time: 11:23 [facility] 02/28 11:03 Order name: US Abdomen Limited; Complete Time: 12:08 [facility] 02/28 11:24 Order name: CT Abd/Pelvis - IV Contrast Only; Complete Time: 12:27 [facility] 02/28 10:11 Order name: IV Saline Lock; Complete Time: 10:26 [facility] 02/28 10:11 Order name: Labs collected and sent; Complete Time: 10:26 [facility] 02/28 10:11 Order name: Urine Dipstick-Ancillary (obtain specimen); Complete Time: 10:39 [facility] 02/28 12:28 Order name: PO challenge; Complete Time: 12:39 [facility] Administered Medications: 10:26 Drug: NS 0.9% 1000 ml Route: IV; Rate: 1 bolus; Site: left antecubital; aj 13:25 Follow up: Response: No adverse reaction; IV Status: Completed infusion; IV Intake: aj 1000ml 10:26 Drug: Reglan 10 mg Route: IVP; Site: left antecubital; aj 13:25 Follow up: Response: No adverse reaction; Marked relief of symptoms aj 10:39 CANCELLED (Inappropriate at this time): Zofran 4 mg IVP once; over 2 minutes aj 11:33 Drug: Tylenol 650 mg Route: PO; aj 12:40 Follow up: Response: No adverse reaction; Pain is decreased aj Disposition: 13:54 Co-signature as Attending Physician, Aureliano Wolfe MD. rn Disposition: 02/28/19 12:58 Discharged to Home. Impression: Vomiting, Diarrhea, unspecified. - Condition is Stable. - Discharge Instructions: Diarrhea, Adult, Nausea and Vomiting, Adult. - Prescriptions for Reglan 10 mg Oral Tablet - take 1 tablet by ORAL route every 6 hours take 30 minutes before meals and at bedtime; 20 tablet. Pepcid 20 mg Oral Tablet - take 1 tablet by ORAL route once daily; 20 tablet. - Medication Reconciliation Form, Thank You Letter, Antibiotic Education, Prescription Opioid Use form. - Follow up: Private Physician; When: 2 - 3 days; Reason: Recheck today's complaints, Continuance of care, Re-evaluation by your physician. Signatures: Dispatcher [employer] EDMS Gladys Logan RN Desiree Corey ch, RN RN aj Mickail, Joel, PA PA jmm Nieto, Roman, MD MD rn patient services: (The following items were deleted from the chart) 10:39 10:11 Zofran 4 mg IVP once; over 2 minutes ordered. bharat patiño 10:39 10:26 Zofran 4 mg IVP once; over 2 minutes given. haroon patiño 10:39 10:37 Zofran 4 mg IVP once; over 2 minutes ordered. haroon patiño 13:26 12:58 02/28/2019 12:58 Discharged to Home. Impression: Vomiting; Diarrhea, unspecified. aj Condition is Stable. Forms are Medication Reconciliation Form, Thank You Letter, Antibiotic Education, Prescription Opioid Use. Follow up: Private Physician; When: 2 - 3 days; Reason: Recheck today's complaints, Continuance of care, Re-evaluation by your physician. bharat
--- NOTE | 2019-02-28 12:59 | ER ---
Nurse's Notes [facility] Name: Lily Swann Age: 28 yrs Sex: Female : 1990 Arrival Date: 02/28/2019 Time: 08:41 Bed 16 Private MD: Diagnosis: Vomiting;Diarrhea, unspecified Presentation: 02/28 09:00 Presenting complaint: Patient states: abdominal pain,. nausea, vomiting, started last ch night at 2000. diarrhea too I think the norco from my sx if making my feel sick. I had a tubal 3 weeks ago, last week vomiting and felt feverish. headache too. Transition of care: patient was not received from another setting of care. Onset of symptoms was February 27, 2019 at 20:00. Risk Assessment: Do you want to hurt yourself or someone else? Patient reports no desire to harm self or others. Initial Sepsis Screen: Does the patient meet any 2 criteria? No. Patient's initial sepsis screen is negative. Does the patient have a suspected source of infection? No. Patient's initial sepsis screen is negative. Care prior to arrival: None. 09:00 Method Of Arrival: Ambulatory 09:00 Acuity: SERA 3 09:01 Presenting complaint: Patient states: I think the norco from my sx if making my feel ch sick. I had a tubal 3 weeks ago, last week vomiting and felt feverish. headache too. Triage Assessment: 09:03 General: Appears in no apparent distress. uncomfortable, Behavior is cooperative, ch appropriate for age. Pain: Complains of pain in abdomen. GI: Reports diarrhea, nausea, vomiting. 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 - Social history:: Smoking status: Patient/guardian denies using tobacco, Patient/guardian denies using alcohol, street drugs. - Ebola Screening: : Patient negative for fever greater than or equal to 101.5 degrees Fahrenheit, and additional compatible Ebola Virus Disease symptoms Patient denies exposure to infectious person Patient denies travel to an Ebola-affected area in the 21 days before illness onset No symptoms or risks identified at this time. Screenin:55 Abuse screen: Denies threats or abuse. Nutritional screening: No deficits noted. tw2 Tuberculosis screening: No symptoms or risk factors identified. Fall Risk None identified. Assessment: 10:26 General: Appears in no apparent distress. uncomfortable, Behavior is calm, cooperative, aj appropriate for age. Pain: Complains of pain in abdomen. Neuro: Level of Consciousness is awake, alert, obeys commands, Oriented to person, place, time, situation, Appropriate for age. Respiratory: Airway is patent Respiratory effort is even, unlabored, Respiratory pattern is regular, symmetrical. GI: Abdomen is non-distended, obese, Bowel sounds present X 4 quads. Abd is soft and non tender X 4 quads. Reports upper abdominal pain, nausea, vomiting. Derm: Skin is intact, is healthy with good turgor, Skin is pink, warm \T\ dry. normal. 13:23 Reassessment: Patient appears in no apparent distress at this time. No changes from previously documented assessment. Patient and/or family updated on plan of care and expected duration. Pain level reassessed. Patient is alert, oriented x 3, equal unlabored respirations, skin warm/dry/pink. Patient states feeling better. Patient states symptoms have improved. Vital Signs: 09:02 BP 116 / 62; Pulse 98; Resp 20; Temp 98.1; Pulse Ox 99% on R/A; Weight 74.84 kg; Height 5 ft. 3 in. (160.02 cm); Pain 8/10; 10:50 BP 120 / 79; Pulse 74; Resp 18; Pulse Ox 100% on R/A; aj 12:19 BP 112 / 63; Pulse 67; Resp 17; Pulse Ox 99% on R/A; aj 13:23 BP 113 / 64; Pulse 84; Resp 16; Pulse Ox 99% on R/A; aj 09:02 Body Mass Index 29.23 (74.84 kg, 160.02 cm) ED Course: 08:41 Patient arrived in ED. as 09:00 Triage completed. 09:02 Arm band placed on left wrist. Patient placed in waiting room. 09:36 Bed in low position. Call light in reach. Pulse ox on. NIBP on. tw2 09:41 Desiree Nair, RN is Primary Nurse. aj 10: Errol Pillai PA is PHCP. latricia 10:02 Aureliano Wolfe MD is Attending Physician. [facility] 10:26 Notified Nurse Practitioner and/or Physician Fisher Crab of Patient requested pain aj medication. No new orders. 10:26 Inserted saline lock: 20 gauge in left antecubital area, using aseptic technique. Blood aj collected. 11:23 US Abdomen Limited In Process Unspecified. EDMS 12:18 CT Abd/Pelvis - IV Contrast Only In Process Unspecified. EDMS 13:23 No provider procedures requiring assistance completed. IV discontinued, intact, aj bleeding controlled, No redness/swelling at site. Pressure dressing applied. Administered Medications: 10:26 Drug: NS 0.9% 1000 ml Route: IV; Rate: 1 bolus; Site: left antecubital; aj 13:25 Follow up: Response: No adverse reaction; IV Status: Completed infusion; IV Intake: aj 1000ml : Drug: Reglan 10 mg Route: IVP; Site: left antecubital; aj 13:25 Follow up: Response: No adverse reaction; Marked relief of symptoms aj 10:39 CANCELLED (Inappropriate at this time): Zofran 4 mg IVP once; over 2 minutes aj 11:33 Drug: Tylenol 650 mg Route: PO; aj 12:40 Follow up: Response: No adverse reaction; Pain is decreased aj Intake: 13:25 IV: 1000ml; Total: 1000ml. aj Outcome: 12:58 Discharge ordered by MD. m 13:23 Discharged to home ambulatory. aj 13:23 Condition: good 13:23 Discharge instructions given to patient, Instructed on discharge instructions, follow up and referral plans. medication usage, Demonstrated understanding of instructions, follow-up care, medications, Prescriptions given X 2. 13:26 Patient left the ED. aj Signatures: Dispatcher [employer] EDMS Gladys Logan RN RN ch Myers, Amanda, RN RN aj Mickail, Joel, PA PA jmm Martinez, Amelia as Wise, Tara RN RN tw2 Corrections: (The following items were deleted from the chart) 09:02 09:00 Presenting complaint: Patient states: abdominal pain,. nausea, vomiting, started ch last night at 2000. diarrhea too ch 09:02 09:00 Transition of care: patient was not received from another setting of care. [facility] 10:37 10:26 Zofran 4 mg IVP in left antecubital aj aj
[2019-02-28 13:10] LABS: Urine Blood NEGATIVE (NEG); Urine Glucose NEGATIVE (NEG); Urine Protein 1+ (NEG); Urine Specific Gravity 1.025 (1.005-1.030)
[2019-02-28 13:59] VITALS: TEMP 98.1
[2019-02-28 14:01] VITALS: O2SAT 99
[2019-02-28 14:03] VITALS: BP 113/64
== END 2019-02-28 13:26 | disposition home or self-care (01) ==
LOC: ER 08:39
DX: R19.7 Diarrhea, unspecified (principal); E03.9 Hypothyroidism, unspecified
CPT/HCPCS: 36415; 74177; 76705; 80048; 80076; 81003; 81025; 83690; 85025; 96361; 96374; 99284; J2765; J7030; Q9967